=== PATIENT | female | born 1985 | race Two or more races ===

== ENCOUNTER 2019-06-21 09:16 | Inpatient (IN) | payer MEDICAID, OTHER ==
[~2019-06-21] VITALS: Ht 160 cm; Wt 82.6 kg
[2019-06-21] MEDS ORDERED: SODIUM CHLORIDE 0.9% 1,000 ML IV ONE ×3 (09:59→14:00)
[2019-06-21] MEDS ORDERED: methylPREDNISolone SOD SUCC 125 MG/2 ML VL IV ONE (10:00)
[2019-06-21 10:38] LABS: Basophils # (auto) 0 10 ^3/uL (0-0.2); Basophils % (auto) 0.2 % (0.0-2.0); Eosinophils # (auto) 0.5 10 ^3/uL (0-0.8); Hemoglobin 10.5 g/dL (12.2-16.2); Monocytes # (auto) 0.3 10 ^3/uL (0-1.3); Nucleated Red Blood Cells % 0.1 %; Platelet Count (auto) 263 10^3/uL (140-450); Red Blood Cells 4.06 10^6/uL (4.0-5.20); White Blood Cell 14.7 10^3/uL (4.4-10.8)
[2019-06-21 10:39] LABS: Eosinophils % (auto) 3.2 % (0.0-7.0); Hematocrit 32.9 % (36.0-46.0); Lymphocytes # (auto) 0.3 10 ^3/uL (0.4-5.4); Lymphocytes % (auto) 2.3 % (10.0-50.0); Mean Corpuscular Hemoglobin 25.9 pg (28.0-32.0); Mean Corpuscular Hgb Conc. 31.9 g/dL (32.0-36.0); Mean Corpuscular Volume 81.1 fL (80.0-100.0); Monocytes % (auto) 2.3 % (0.0-12.0); Neutrophils # (auto) 13.5 10 ^3/uL (1.6-8.6); Red Cell Distribution Width 17.1 % (11.8-14.3)
[2019-06-21 10:54] LABS: Albumin 2.3 g/dL (3.4-5.0); Calcium 8.1 mg/dL (8.5-10.1); Potassium 4.8 mmol/L (3.5-5.1)
[2019-06-21 10:59] LABS: BUN/Creatinine Ratio 8.9; Total Protein 7.1 g/dL (6.4-8.2)
[2019-06-21 11:00] LABS: Lactic Acid w/Reflex 7.8 mmol/L (0.4-2.0)
[2019-06-21 11:16] LABS: INR 1.19 (0.9-1.15)
[2019-06-21] MEDS ORDERED: PIPERACILLIN-TAZOB 3.375GM 100 ML IV ONE ×2 (12:00→14:15)
[2019-06-21] MEDS ORDERED: SODIUM CHLORIDE 0.9% 1,000 ML IV SCH ×3 (13:51→16:45)
[2019-06-21] MEDS ORDERED: methylPREDNISolone SOD SUCC 40 MG/ML VL IV SCH (14:00)
[2019-06-21] MEDS ORDERED: traMADol HCL 50 MG TAB PO PRN ×2 (14:00→14:15)
[2019-06-21] MEDS ORDERED: MORPHINE SULF INJ 2 MG/ML SYRINGE 1ML IV PRN (14:00)
[2019-06-21] MEDS ORDERED: DexAMETHasone INJECTION 10 MG in D5W 5% 50 ML IV ONE (14:00)
[2019-06-21] MEDS ORDERED: PROMETHAZINE HCL 25 MG/ML 1ML IV PRN (14:00)
[2019-06-21] MEDS ORDERED: TEMAZEPAM 15 MG CAP PO PRN (14:00)
[2019-06-21] MEDS ORDERED: ACETAMINOPHEN 500 MG TAB PO PRN (14:00)
[2019-06-21] MEDS ORDERED: NITROGLYCERIN 0.4 MG SL TAB SL PRN (14:00)
[2019-06-21] MEDS ORDERED: DexAMETHasone SOD PHOS 4 MG/1ML SDV INJ ONE (14:02)
[2019-06-21 14:13] LABS: Amylase 20 U/L (25-115); Lipase 39 U/L (73-393)
[2019-06-21] MEDS ORDERED: ENOXAPARIN SOD 30 MG/0.3 ML SYRINGE SC ONE ×2 (14:15→22:00)
[2019-06-21] MEDS ORDERED: FAMOTIDINE 20 MG TAB PO ONE ×2 (14:15→22:00)
[2019-06-21 14:35] LABS: Urine Amorphous Crystal FEW /hpf (None Seen); Urine Bacteria FEW /hpf (None Seen); Urine Blood 1+ /uL (Negative); Urine Specific Gravity 1.007 (1.001-1.035); Urine WBC 53 /hpf (0 - 5)
[2019-06-21 14:49] LABS: CRP High Sensitivity > 19.0 mg/dL (< 0.3)
[2019-06-21] MEDS: SODIUM CHLORIDE 0.9% 1,000 ML IV SCH (16:07)
[2019-06-21] MEDS: PIPERACILLIN-TAZOB 3.375GM 100 ML IV SCH (17:29)
--- NOTE | 2019-06-21 19:50 | NUR ---
Admit to [facility] CRYSTAL SIMMONSDelfinodmitted to [facility] via gurney on manager monitoring, and portable 02. Patient transfered to bed, connected to unit monitoring and weighed by bedscale. Patient oriented to Tre Rose, primary RN, unit, room, bed, and unit policies regarding patient care and visiting hours. All questions and concerns addressed, patient verbalized understanding. physical assessment under interventions. call light within reach. NOTE:
[2019-06-21 20:00] VITALS: BP 107/59
--- NOTE | 2019-06-21 21:45 | NUR ---
pt watching tv no distress noted.
[2019-06-21] MEDS: methylPREDNISolone SOD SUCC 40 MG/ML VL IV SCH (22:02)
[2019-06-21 22:03] VITALS: BP 107/59
[2019-06-22] MEDS: PIPERACILLIN-TAZOB 3.375GM 100 ML IV SCH ×5 (00:04→23:36)
[2019-06-22 00:23] VITALS: BP 106/56
--- NOTE | 2019-06-22 00:30 | NUR ---
PT APPEARS TO BE SLEEPING WILL CONTINUE TO MONITOR.
[2019-06-22] MEDS: SODIUM CHLORIDE 0.9% 1,000 ML IV SCH ×3 (02:00→21:40)
[2019-06-22 04:00] VITALS: BP 103/57
[2019-06-22 05:58] LABS: Basophils # (auto) 0 10 ^3/uL (0-0.2); Basophils % (auto) 0.2 % (0.0-2.0); Eosinophils # (auto) 0.1 10 ^3/uL (0-0.8); Eosinophils % (auto) 1.1 % (0.0-7.0); Hematocrit 27.3 % (36.0-46.0); Hemoglobin 9.1 g/dL (12.2-16.2); Lymphocytes # (auto) 0.5 10 ^3/uL (0.4-5.4); Lymphocytes % (auto) 4.8 % (10.0-50.0); Mean Corpuscular Hemoglobin 26.5 pg (28.0-32.0); Mean Corpuscular Hgb Conc. 33.5 g/dL (32.0-36.0); Mean Corpuscular Volume 79.1 fL (80.0-100.0); Monocytes # (auto) 0.3 10 ^3/uL (0-1.3); Monocytes % (auto) 3.6 % (0.0-12.0); Neutrophils # (auto) 8.6 10 ^3/uL (1.6-8.6); Neutrophils % (auto) 90.3 % (37.0-80.0); Nucleated Red Blood Cells % 0.1 %; Platelet Count (auto) 230 10^3/uL (140-450); Red Blood Cells 3.45 10^6/uL (4.0-5.20); Red Cell Distribution Width 16.9 % (11.8-14.3); White Blood Cell 9.5 10^3/uL (4.4-10.8)
[2019-06-22 06:26] LABS: Albumin 1.8 g/dL (3.4-5.0); BUN/Creatinine Ratio 16.8
[2019-06-22 06:28] LABS: Bilirubin, Total 0.6 mg/dL (0.2-1.0); Total Protein 6.3 g/dL (6.4-8.2)
--- NOTE | 2019-06-22 07:30 | NUR ---
RECEIVED PATIENT SEMI FOWLERS IN BED, PER [place] SPEAKING NURSE THE PATIENT IS A/O TIMES 4, DENIES PAIN, USES THE BSC, NS INFUSING INTO THE RAC 20G BY THE IV PUMP, O2 BY R/A,
--- NOTE | 2019-06-22 07:45 | NUR ---
ENDORSED CARE TO DAY NURSE. PT RESTING. NO DISTRESS NOTED.
[2019-06-22 07:55] VITALS: BP 114/72
--- NOTE | 2019-06-22 08:30 | NUR ---
SITTING UP IN THE BED AND EATING HER BREAKFAST NO HELP NEEDED
--- NOTE | 2019-06-22 09:10 | NUR ---
UP TO THE BSC AND HAD A BM, NO HELP NEEDED WITH AMBULATION
--- NOTE | 2019-06-22 09:20 | NUR ---
DR DECKER INTO SEE THE PATIENT BUT NO NEW ORDERS
[2019-06-22] MEDS: methylPREDNISolone SOD SUCC 40 MG/ML VL IV SCH (09:47)
--- NOTE | 2019-06-22 09:51 | NUR ---
EXPLAIN MEDICATIONS TO THE PATIENT REGARDING THE DOSAGE ,USAGE AND THE SIDE EFFECTS, VERBALIZED THAT SHE UNDERSTOOD, [employer] SPEAKING EMPLOYEE TRANSLATED TO THE PATIENT
[2019-06-22] MEDS ORDERED: ENOXAPARIN SOD 30 MG/0.3 ML SYRINGE SC SCH (10:00)
[2019-06-22] MEDS ORDERED: FAMOTIDINE 20 MG TAB PO SCH ×2 (10:00→22:00)
--- NOTE | 2019-06-22 11:07 | NUR ---
SITTING UP IN BED WATCHING TV, NO COMPLAINTS
[2019-06-22 12:00] VITALS: BP 127/94
--- NOTE | 2019-06-22 12:45 | NUR ---
DR RODRIGUEZ IN TO SEE THE PATIENT AND NO NEW ORDERS
--- NOTE | 2019-06-22 13:30 | NUR ---
WATCHING TV NO COMPLAINTS
--- NOTE | 2019-06-22 14:30 | NUR ---
NO COMPLAINTS OF PAIN , LYING IN BED WITH EYES CLOSED, APPEARS TO BE SLEEPING
--- NOTE | 2019-06-22 15:30 | NUR ---
TALKING ON THE PHONE, NO COMPLAINTS
[2019-06-22 15:50] VITALS: BP 117/77
--- NOTE | 2019-06-22 15:51 | NUR ---
REPORT CALLED TO OLE MONTALVO PATIENT GOING TO ROOM 215B BY THE BED, HAS ALL BELONGINGS INCLUDING CELL PHONE AND BLACK PURSE
--- NOTE | 2019-06-22 16:00 | NUR ---
Received patient via bed from [facility].
--- NOTE | 2019-06-22 16:10 | NUR ---
PATIENT MOVED TO ROOM 215B BY THE BED
--- NOTE | 2019-06-22 16:15 | NUR ---
Patient speaks Argentine only.
--- NOTE | 2019-06-22 17:04 | NUR ---
Marco Antonio Plant Cytologist Camelia. Addendum: 06/22/19 at 1712 by Christine Montgomery RN WRONG PATIENT.
--- NOTE | 2019-06-22 17:10 | NUR ---
Patient in bed, awake, oriented x4. No acute distress noted.
--- NOTE | 2019-06-22 17:20 | NUR ---
Patient is ambulatory to the bathroom.
--- NOTE | 2019-06-22 17:43 | NUR ---
Pt is currently listed as having no insurance. Pt states they are currently unemployed. Discussed with patient elgibility options for medical coverage based on their current situation. Pt referred to Tex Mcelroy, [facility] diet consultant to assist with process for [employer] insurance coverage. Advised pt that additional [id number] regarding D/C planning would be provided prior to their discharge. Will follow up with Tex regarding the insurance status.
--- NOTE | 2019-06-22 18:35 | NUR ---
RAJI Ybarra came over. As per Urology, patient can go home if okay with hospitalist. Patient to follow up with Urology as outpatient.
[2019-06-22 22:00] VITALS: BP 115/69
--- NOTE | 2019-06-22 22:57 | NUR ---
Opening Shift Note R eport received from KATIA pennington.Assumed care of patient, awake and alert. No S/S of distress/SOB or pain. Instructed on POC and to call for assist PRN, will continue to monitor for changes Q1hr and PRN. bed in low position and call light within reach
[2019-06-23 05:00] VITALS: BP 126/78
[2019-06-23] MEDS: PIPERACILLIN-TAZOB 3.375GM 100 ML IV SCH ×3 (05:32→17:31)
--- NOTE | 2019-06-23 06:45 | NUR ---
patient rounds patient is in bed sleeping bilateral chest rise and fall rr 16. shows no signs of distress sob/ or pain. call light within reach and bed alarm on
[2019-06-23 07:09] LABS: Basophils # (auto) 0 10 ^3/uL (0-0.2); Eosinophils # (auto) 0 10 ^3/uL (0-0.8); Lymphocytes # (auto) 0.5 10 ^3/uL (0.4-5.4)
[2019-06-23 07:11] LABS: Hematocrit 27.1 % (36.0-46.0); Lymphocytes % (auto) 6.2 % (10.0-50.0); Mean Corpuscular Hemoglobin 26.6 pg (28.0-32.0); Mean Corpuscular Volume 80.7 fL (80.0-100.0); Monocytes # (auto) 0.4 10 ^3/uL (0-1.3); Monocytes % (auto) 4.9 % (0.0-12.0); Neutrophils # (auto) 6.5 10 ^3/uL (1.6-8.6); Neutrophils % (auto) 88.9 % (37.0-80.0); Platelet Count (auto) 206 10^3/uL (140-450); Red Blood Cells 3.36 10^6/uL (4.0-5.20); Red Cell Distribution Width 16.7 % (11.8-14.3); White Blood Cell 7.3 10^3/uL (4.4-10.8)
--- NOTE | 2019-06-23 07:16 | NUR ---
report given to vin miller
[2019-06-23 07:23] LABS: BUN/Creatinine Ratio 29.1; Calcium 7.8 mg/dL (8.5-10.1); Potassium 4.3 mmol/L (3.5-5.1)
--- NOTE | 2019-06-23 09:00 | NUR ---
Patient ambulatory to the bathroom.
[2019-06-23 09:31] VITALS: BP 133/92
[2019-06-23] MEDS: FAMOTIDINE 20 MG TAB PO SCH (11:07)
[2019-06-23] MEDS: SODIUM CHLORIDE 0.9% 1,000 ML IV SCH ×2 (11:08→17:31)
[2019-06-23] MEDS: predniSONE 20 MG TAB PO SCH (11:08)
--- NOTE | 2019-06-23 12:30 | NUR ---
Zachery Garg at bedside. to discharge the patient tomorrow.
--- NOTE | 2019-06-23 12:35 | NUR ---
KATIA Chaves translated to patient in Maltese that Zachery Garg ordered that she will discharge her tomorrow, Tuesday. Addendum: 06/23/19 at 1732 by Christine Montgomery RN that he will discharge her tomorrow
[2019-06-23 12:59] VITALS: BP 138/77
[2019-06-23 17:22] VITALS: BP 147/88
--- NOTE | 2019-06-23 19:29 | NUR ---
Opening Shift Note Assumed care of patient, awake and alert. No S/S of distress/SOB or pain. Instructed on POC and to call for assist PRN, will continue to monitor for changes Q1hr and PRN. bed in low position and call light within reach.
--- NOTE | 2019-06-23 23:40 | NUR ---
IV insertion/IV removal IV DC'd with clean sterile technique, catheter fully intact. Pressure dressing applied to site. Patient tolerated well.IV access obtained, via clean sterile technique by inserting 20 gauge catheter at right ac after 2 attempts. IV secured properly. No trauma to site. Patient tolerated well.
[2019-06-24] MEDS: PIPERACILLIN-TAZOB 3.375GM 100 ML IV SCH ×3 (00:27→11:44)
[2019-06-24 00:31] VITALS: BP 131/81
[2019-06-24] MEDS: SODIUM CHLORIDE 0.9% 1,000 ML IV SCH (04:00)
[2019-06-24 05:00] VITALS: BP 149/87
--- NOTE | 2019-06-24 06:41 | NUR ---
patient rounds patient is in bed sleeping. rr 15 bilateral chest rise and fall. no signs of distress sob or pain. bed in low position
--- NOTE | 2019-06-24 07:16 | NUR ---
report given to vin miller
--- NOTE | 2019-06-24 07:25 | NUR ---
Patient in bed, asleep, no acute distress noted.
--- NOTE | 2019-06-24 08:40 | NUR ---
Zachery Garg at bedside. MD to discharge the patient today. Patient to follow up with Terell Valentine as outpatient for Urology.
[2019-06-24 09:00] VITALS: BP 135/96
[2019-06-24] MEDS: FAMOTIDINE 20 MG TAB PO SCH (09:08)
[2019-06-24] MEDS: predniSONE 20 MG TAB PO SCH (09:08)
[2019-06-24 09:59] VITALS: BP 135/96
[2019-06-24 10:25] VITALS: BP 135/96
[2019-06-24 10:33] VITALS: BP 135/96
--- NOTE | 2019-06-24 11:30 | NUR ---
Discharge instructions given as ordered. Encourage to follow up with Terell Valentine for Urology as instructed. Patient has no insurance. Referred to [facility], coupon given, and [facility] and contact number for [employer] Grade Teacher Radha Urias and Tex given to patient. All questions and concerns addressed. Patient verbalized understanding. Medication reconciliation form completed and copy given to patient. IV removed with catheter intact, pressure dressing applied. Patient taken to Main Lobby via wheelchair with all personal belongings, accompanied by staff. 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 No distress noted at time of departure.
== END 2019-06-24 11:30 | disposition home or self-care (01) | DRG 720 ==
LOC: ER 09:16 → TELE 09:17 → EDBD 09:17 → DOU IN ICU 19:40 → CENTRAL 06-22 16:16
PROVIDERS: ADMIT Internal Medicine; ATTEND Internal Medicine Nephrology
DX: A41.9 Sepsis, unspecified organism (principal); E43 Unspecified severe protein-calorie malnutrition; E87.2 Acidosis; N17.9 Acute kidney failure, unspecified; N13.6 Pyonephrosis; Z68.32 Body mass index [BMI] 32.0-32.9, adult; K76.0 Fatty (change of) liver, not elsewhere classified; M06.9 Rheumatoid arthritis, unspecified; Z82.49 Family history of ischemic heart disease and other diseases of the circulatory system; Z83.3 Family history of diabetes mellitus
CPT/HCPCS: 36415; 36600; 71045; 74176; 76775; 80048; 80053; 81001; 82150; 82805; 83520; 83605; 83690; 85025; 85610; 85652; 85730; 86038; 86141; 86160; 86256; 86431; 87040; 87081; 87086; 99291; G0378; J1100; J2543; J7060